=== PATIENT | male | born 1970 | race Caucasian/White ===

== ENCOUNTER 2016-05-31 08:00 | Observation (INO) | payer BC, OTHER ==
--- NOTE | 2016-05-27 23:14 | PREOPHP ---
DATE OF ADMISSION: 06/04/[address] Sharp: Thank you very much for allowing me to participate in the care of Mr. Up. HISTORY OF PRESENT ILLNESS: He is a charming 45-year-old gentleman with a history of lumbar disk di sease who is being brought in for right L5-S1 lumbar decompression and possible diskectomy. He has failed all conservative attempts at treatment. PAST MEDICAL HISTORY: 1. Usual childhood diseases. 2. Status post appendectomy. 3. Status post repair of an undescended testicle on the left. ALLERGIES: HE HAS NO KNOWN MEDICAL ALLERGIES. MEDICATIONS: He is on no medications. HABITS: He is a nonsmoker. Rare alcohol. One cup of coffee per day. No recreational drugs. SOCIAL HISTORY: He was born in [place] and raised there. He has a high school education. 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 FAMILY HISTORY: Negative for coronary artery disease, negative for diabetes, negative for hypertens ion, negative for stroke, negative for asthma, negative for glaucoma. Positive for migraine. Negat dante for colon cancer, negative for prostate cancer, negative for anesthesia reactions. REVIEW OF SYSTEMS: HEAD AND EYES: Fully negative. EARS, NOSE, THROAT: Negative. RESPIRATORY: Negative. CARDIAC: Negative. HEMATOLOGIC: Negative. GASTROINTESTINAL: Negative. UROLOGIC: Negative. He reports that he is sexually active. MUSCULOSKELETAL: Notable for right-sided sciatica and otherwise negative. PSYCHIATRIC: Negative. NEUROLOGIC: Notable for right-sided sciatica and otherwise negative. GENERAL: Without note. PHYSICAL EXAMINATION: GENERAL: At time of physical exam, he is a well-developed, well-nourished gentleman in no fr ank distress. VITAL SIGNS: He has a height of 72-1/4 inches, weight 202.3. Blood pressure 124/60, pulse 80, temp erature 98.1. HEENT: NC/AT, PERRL, EOMI, anicteric. Fundi are without note. Tympanic membranes are without note . Oropharynx demonstrates no lesions. NECK: Supple. There is a midline trachea. There is no thyromegaly. RESPIRATORY: Clear to auscultation and percussion. CARDIAC: No JVD. Regular rate and rhythm without rubs, murmurs or gallops. ABDOMEN: Soft, nontender. Active bowel sounds. No hepatosplenomegaly, no CVA tenderness, no herni as, no bruits. EXTREMITIES: No clubbing, cyanosis or edema. NEUROLOGIC: As per the dictation of Dr. Sharp. LABORATORY DATA: Sodium 143, potassium 4.2, chloride 98, bicarbonate 28, BUN 15, creatinine 1.0, ra ndom blood sugar 93. White count 7, hemoglobin 14.4, hematocrit 44.3, platelet count 316. Pro time 11.3 with an INR of 0.95, PTT is 32 seconds. Urinalysis: 1.020, pH is 5, trace blood. Dipstick i s otherwise negative. EKG is sinus rhythm at 72 with intervals of 0.17, 0.09, 0.40 and axis of 45 degrees, normal morpholo gy. Chest x-ray demonstrates normal cardiac size and silhouette, normal bones and soft tissue, normal rena ngs with no evidence of TB. ASSESSMENT AND PLAN: Preoperative medical consultation prior to elective lumbar spinal surgery. At this time, I find Mr. Up to be an acceptable surgical candidate and concur with your plans t o proceed with surgery. He is at average surgical risk as compared to his age-matched peers and maverick uld do well using all standard and routine anesthesia precautions. Using the modified Valderrama risk classification for cardiac complications, he is at low risk. Respectfully yours, Dictated By: PASTOR QURESHI MD, JR/NTS Conf#: [id number] DID#: [id number] CC: MANDIE SHARP MD;*EndCC*
[2016-05-28 17:45] VITALS: BMI 26.8
[2016-05-31] VITALS (24 sets, daily range): BP systolic 121–169; BP diastolic 66–100; PULSE 79–112; RESP 10–23; Ht 185.4 cm; Wt 90.3 kg
[~2016-05-31] VITALS: Ht 185.4 cm; Wt 90.3 kg
[2016-05-31] MEDS ORDERED: FENTAnyl 50 MCG/ML VIAL ONE (16:13)
--- NOTE | 2016-05-31 16:25 | HP ---
Date/Time of Note Date/Time of Note DATE: 05/31/16 TIME: 16:23 Assessment/Plan VTE Prophylaxis VTE Prophylaxis Intervention: ambulation Lines/Catheters IV [facility] Saline Lock HPI/ROS Admit Date/Time Admit Date/Time May 31, 2016 at 09:42 Hx of Present Illness DATE OF ADMISSION: 06/04/2016 : HISTORY OF PRESENT ILLNESS: He is a charming 45-year-old gentleman with a history of lumbar disk disease who is being brought in for right L5-S1 lumbar decompression and possible diskectomy. He has failed all conservative attempts at treatment. PAST MEDICAL HISTORY: 1. Usual childhood diseases. 2. Status post appendectomy. 3. Status post repair of an undescended testicle on the left. ALLERGIES: HE HAS NO KNOWN MEDICAL ALLERGIES. MEDICATIONS: He is on no medications. HABITS: He is a nonsmoker. Rare alcohol. One cup of coffee per day. No recreational drugs. SOCIAL HISTORY: He was born in [facility] and raised there. He has a high school education. 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 FAMILY HISTORY: Negative for coronary artery disease, negative for diabetes, negative for hypertension, negative for stroke, negative for asthma, negative for glaucoma. Positive for migraine. Negative for colon cancer, negative for prostate cancer, negative for anesthesia reactions. REVIEW OF SYSTEMS: HEAD AND EYES: Fully negative. EARS, NOSE, THROAT: Negative. RESPIRATORY: Negative. CARDIAC: Negative. HEMATOLOGIC: Negative. GASTROINTESTINAL: Negative. UROLOGIC: Negative. He reports that he is sexually active. MUSCULOSKELETAL: Notable for right-sided sciatica and otherwise negative. PSYCHIATRIC: Negative. NEUROLOGIC: Notable for right-sided sciatica and otherwise negative. GENERAL: Without note. PHYSICAL EXAMINATION: GENERAL: At time of physical exam, he is a well-developed, well-nourished gentleman in no live distress. VITAL SIGNS: He has a height of 72-1/4 inches HEENT: NC/AT, PERRL, EOMI, anicteric. Fundi are without note. Tympanic membranes are without note. Oropharynx demonstrates no lesions. NECK: Supple. There is a midline trachea. There is no thyromegaly. RESPIRATORY: Clear to auscultation and percussion. CARDIAC: No JVD. Regular rate and rhythm without rubs, murmurs or gallops. ABDOMEN: Soft, nontender. Active bowel sounds. No hepatosplenomegaly, no CVA tenderness, no hernias, no bruits. EXTREMITIES: No clubbing, cyanosis or edema. NEUROLOGIC: As per the dictation of Dr. Sharp. LABORATORY DATA: Sodium 143, potassium 4.2, chloride 98, bicarbonate 28, BUN 15 , creatinine 1.0, random blood sugar 93. White count 7, hemoglobin 14.4, hematocrit 44.3, platelet count 316. Pro time 11.3 with an INR of 0.95, PTT is 32 seconds. Urinalysis: 1.020, pH is 5, trace blood. Dipstick is otherwise negative. EKG is sinus rhythm at 72 with intervals of 0.17, 0.09, 0.40 and axis of 45 degrees, normal morphology. Chest x-ray demonstrates normal cardiac size and silhouette, normal bones and soft tissue, normal lungs with no evidence of TB. ASSESSMENT AND PLAN: Right L5-S1 stenosis, plan for Right sided l%-S1 microdecompression PMH/Family/Social Social History Smoking Status: Former smoker Exam/Review of Systems Vital Signs Vitals Vital Signs Date Time Temp Pulse Resp B/P Pulse Ox O2 Delivery O2 Flow Rate FiO2 05/31/16 10:46 98.2 79 16 139/92 97 Room Air MANDIE SHARP MD May 31, 2016 16:25
--- NOTE | 2016-05-31 16:26 | HPN ---
Date/Time of Note Date/Time of Note DATE: 05/31/16 TIME: 16:26 Interval H&P Admission Note Pt. seen H&P reviewed: No system changes MANDIE SHARP MD May 31, 2016 16:26
[2016-05-31] MEDS ORDERED: GELATIN SIZE 100 SPONGE ONE (16:51)
[2016-05-31] MEDS ORDERED: BUPIVACAINE 0.25% (MPF) 30 ML INJ ONE (16:51)
[2016-05-31] MEDS ORDERED: BUPIVACAINE 0.25%/EPI (SDV) 30 ML INJ ONE (16:51)
[2016-05-31] MEDS ORDERED: POLYMYXIN/BACITRACIN 1L IRRIG ONE (16:51)
[2016-05-31] MEDS ORDERED: THROMBIN 5000 UNIT VIAL ONE (16:51)
[2016-05-31] MEDS ORDERED: BETAMET NA PHOS/AC(6 MG/ML) 5ML INJ ONE (18:03)
[2016-05-31] MEDS ORDERED: FENTAnyl 50 MCG/ML VIAL IV PRN (18:30)
[2016-05-31] MEDS ORDERED: HYDROmorphONE (0.2 MG/ML) 10ML SYG IV PRN ×3 (18:30)
[2016-05-31] MEDS ORDERED: MEPERIDINE 25 MG INJ IV PRN (18:30)
[2016-05-31] MEDS ORDERED: DIPHENHYDRAMINE 50 MG INJ IV PRN (18:30)
[2016-05-31] MEDS ORDERED: OXYCODONE/ACETAMINOPHEN (5/325) TAB PO PRN (18:30)
[2016-05-31] MEDS ORDERED: METOCLOPRAMIDE 10 MG INJ IV PRN (18:30)
[2016-05-31] MEDS ORDERED: ONDANSETRON 4 MG INJ IV PRN ×2 (18:30→19:00)
--- NOTE | 2016-05-31 18:32 | OPR ---
Date/Time of Note Date/Time of Note DATE: 05/31/16 TIME: 18:26 Operative Report Free Text/Dictation DATE OF OPERATION: 05/31/2016 PREOPERATIVE DIAGNOSES: Right L5-S1 disk herniation and lateral recess stenosis with S1 radiculopathy POSTOPERATIVE DIAGNOSES:same OPERATION PERFORMED: Right L5-S1 parial laminectomy, medial facetectomy and microdiscectomy SURGEON: Mandie Sharp MD VICE PRESIDENT OF TALENT ACQUISITION: Kd oCle MD ANESTHESIA: General endotracheal ESTIMATED BLOOD LOSS: Minimal SURGICAL INDICATION: The patient is a 45 year-old male who presents with a history of right lower extremity pain. He was found to have a disc herniation and lateral recess stenosis which correlated well with their symptoms. The patient had failed conservative treatment. Risks, benefits, and alternatives to microdiscectomy were explained to the patient and they wished to proceed. Risks explained included but were not exclusive of bleeding, infection, cauda equina syndrome, nerve injury, dural tear, iatrogenic instability, recurrent disc herniation, fracture, vascular injury, bowel injury, stroke, heart attack and pulmonary embolism. DESCRIPTION OF TECHNIQUE: The patient was identified in the preoperative area and taken to the operating room. Rapid induction of general endotracheal anesthesia was performed. The patient was given 2 g of cefazolin for prophylaxis. The patient was then placed in the prone position on the marilu table with all bony prominences well padded. The back was prepped and draped in the usual sterile manner. Using a spinal needle and intraoperative fluoroscopy, the appropriate level was clearly identified. The skin was injected using 0.25% Marcaine with epinephrine. Longitudinal midline incision was then created using a 10 blade. Further dissection through soft tissue was performed using electrocautery down to the spinous processes. The dissection was taken down the right side of the lamina and over the facet joint capsule. A self-retaining retractor was applied. Again, intraoperative fluoroscopy confirmed the appropriate level. The microscope was brought into use for microdissection. A portion of the caudal aspect of the cephalad lamina was resected using a high-speed bur. A partial medial facetectomy at L5-S1 was [performed to decompress te nerve root. A series of Kerrison rongeurs were then used to resect the ligamentum flavum. The dura and traversing nerve root were both directly visualized. These were retracted gently in a medial direction. Immediately, the extruded disc fragment was noted. The pseudo anulus was incised using an 11 blade. Several loose fragments of disk were removed. These were removed back to a stable portion of the disk. The disk space was further pressurized using a using normal saline through a syringe to ensure that no loose fragments remained behind. Palpation with a ball-tip probe did not reveal any further stenosis. The traversing S1 nerve root was noted to be significantly decompressed. Meticulous attention was paid towards hemostasis using FloSeal as well as Gelfoam and thrombin. Care was taken to remove all FloSeal and Gelfoam prior to wound closure. The fascia was then closed using 0 startyfix in a running fashion. Subcutaneous tissue was closed using 2-0 Vicryl in an interrupted fashion. The skin was closed using a running 4-0 Monocryl stitch. The wound was dressed using Dermabond and an eye patch. The patient was returned to the supine position. He was extubated immediately postoperatively and taken to the recovery room in stable condition. I was physically present and participated in the entire operation from incision to closure. COMPLICATIONS: None. Anesthesia: general Estimated Blood Loss: 50 - 100 ml's Complications: None Pt Condition Post Procedure: stable Disposition: PACU MANDIE SHARP MD May 31, 2016 18:32
[2016-05-31] MEDS ORDERED: HYDROCODONE/APAP (5/325) TAB PO PRN (19:00)
[2016-05-31] MEDS ORDERED: PROCHLORPERAZINE 10 MG TAB PO PRN (19:00)
[2016-05-31] MEDS ORDERED: ZOLPIDEM 5 MG TAB PO PRN (19:00)
[2016-05-31] MEDS ORDERED: NALOXONE (0.4 MG/ML) INJ IV PRN (19:00)
[2016-05-31] MEDS ORDERED: NACL 0.9% 3 ML SYG IV SCH (19:00)
[2016-05-31] MEDS: FENTAnyl 50 MCG/ML VIAL IV PRN ×3 (19:13→19:48)
[2016-05-31] MEDS: HYDROmorphONE 1 MG/ML SYG IV PRN (21:59)
--- NOTE | 2016-05-31 22:37 | RADRPT ---
PROCEDURE: Intraoperative imaging of the lumbar spine with fluoroscopy. CLINICAL INDICATION: Back pain. Intraoperative. TECHNIQUE: 2 images of the lumbar spine were obtained in the operating room with an image intensif ier. No radiologist was in attendance. COMPARISON: No prior study is available for comparison. FINDINGS: Images demonstrate surgical instruments overlying the lower lumbar spine. IMPRESSION: 1. Intraoperative imaging of the lumbar spine. RPTAT: QQ .Holger Dougherty MD, MD Date Time Electronically viewed and signed by .Holger Dougherty MD, on 05/31/2016 22:37 .R/
[2016-05-31] MEDS: CEFAZOLIN 1 GM/50 ML (PMX) 50 ML IVPB SCH (23:19)
[2016-06-01] MEDS: HYDROmorphONE 1 MG/ML SYG IV PRN ×2 (02:19→06:25)
[2016-06-01] MEDS: CEFAZOLIN 1 GM/50 ML (PMX) 50 ML IVPB SCH ×2 (05:15→12:50)
[2016-06-01 05:30] VITALS: BP 132/79; PULSE 94; RESP 18
[2016-06-01 07:25] VITALS: BP 128/75; RESP 18
--- NOTE | 2016-06-01 07:42 | PDOCDIS ---
Discharge Instructions CONDITION Patient Condition: Good HOME CARE INSTRUCTIONS: Diet Instructions: RegularSpecial Diet: WILL START CLEAR ACTIVITY: Activity Restrictions: Avoid heavy lifting Bathing Restrictions: Tub Bath FOLLOW UP/APPOINTMENTS Appointments Follow-up in [address] Sharp OTHER ORDERS: Other Orders: Keep dressing clean and dry MANDIE SHARP MD Jun 01, 2016 07:42
[2016-06-01] MEDS: HYDROCODONE/APAP (5/325) TAB PO PRN ×3 (08:40→14:42)
== END 2016-06-01 14:45 | disposition home or self-care (01) ==
LOC: INTOOBSV 09:42 → REC 09:42 → MS1 21:22
PROVIDERS: ADMIT Orthopaedic Surgery; ATTEND Orthopaedic Surgery
DX: M51.17 Intervertebral disc disorders with radiculopathy, lumbosacral region (principal)
CPT/HCPCS: 63030; 72110; 97116; 97162; 97530; 99217; G0378; J0690; J0702; J1170; J1200; J3010